=== PATIENT | male | born 1945 | race Caucasian/White ===

== ENCOUNTER 2017-01-17 19:50 | Emergency (ER) | payer OTHER, BC ==
[~2017-01-17] VITALS: Ht 180.3 cm; Wt 121.4 kg
[~2017-01-17 19:50] MED LIST: ACC10 PO; ALL300 PO; CLC6 PO; INDA1TAB3 PO; LANS30CA12 PO; OXYC-609 PO; SYN100 PO
[2017-01-17 19:55] VITALS: TEMP 36.6; Ht 180.3 cm; Wt 121.4 kg
[2017-01-17] MEDS ORDERED: ALLO300T2 PO (20:13)
[2017-01-17] MEDS ORDERED: ASPI81TA28 PO (20:13)
[2017-01-17] MEDS ORDERED: LEVO150T PO (20:13)
[2017-01-17] MEDS ORDERED: QUIN40TA18 PO (20:13)
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
[2017-01-17 22:22] VITALS: BP 147/83; PULSE 78; O2SAT 95
== END 2017-01-17 22:23 | disposition home or self-care (01) ==
LOC: C.EDB 19:54 → C.EDD 22:23
DX: M25.512 Pain in left shoulder (principal); V43.52XA Car driver injured in collision with other type car in traffic accident, initial encounter; I10 Essential (primary) hypertension; M51.16 Intervertebral disc disorders with radiculopathy, lumbar region; Z85.51 Personal history of malignant neoplasm of bladder; Z98.1 Arthrodesis status; Z79.82 Long term (current) use of aspirin; Z79.899 Other long term (current) drug therapy

== ENCOUNTER → 2017-02-13 | Outpatient (CLI) | payer BC ==
[~2017-02-13] MED LIST changes: -ACC10 PO; -ALL300 PO; +ALLO300T2 PO; +ASPI81TA28 PO; -CLC6 PO; +LEVO150T PO; -OXYC-609 PO; +QUIN40TA18 PO; -SYN100 PO
--- NOTE | 2017-02-13 15:26 | DIAGNOSTIC IMAGING REPORT ---
MRI LUMBAR SPINE W/O CONTRAST CLINICAL HISTORY: Back pain with radiculopathy. TECHNIQUE: Sagittal and axial T1, T2 and STIR images were obtained. COMPARISON STUDY: Conventional radiographic study dated 05/12/2016 OBSERVATIONS: The vertebral bodies and posterior elements appear intact. There is no abnormal bony signal present to suggest a marrow replacement process. T12-L1 level. There is an anterior disc protrusion. Sagittal images suggest a broad-based disc bulge. There is minor spinal stenosis. L1-2: No disc protrusions or extrusions. No evidence of spinal canal or neural foraminal compromise. L2-3: There are postsurgical changes of a spinal fusion. There are L2 and L3 pedicle screws. There is mild left-sided foraminal narrowing and mild spinal canal narrowing. L3-4: There are postsurgical changes of a discectomy and interbody fusion. There are posterior laminectomy changes. This 25 mm cyst posterior to the thecal sac. There is no significant spinal stenosis. Foraminal evaluation is difficult due to artifact from the hardware. There are suspected bilateral foraminal narrowing more severe on the right L4-5: There are postsurgical changes of a discectomy and interbody fusion. Postlaminectomy changes are visualized. There is no significant spinal stenosis. There is mild bilateral foraminal narrowing. L5-S1: There is a circumferential disc bulge present. There is mild to moderate spinal stenosis. Soft tissue within the left lateral recess and foramen, likely represents either postsurgical epidural fibrosis, a disc fragment, or nerve root edema. A post contrast-enhanced study might be of benefit to differentiate these entities. The conus medullaris and cauda equina appear normal. IMPRESSION: 1. Postsurgical change and multilevel spondylitic change 2. Multilevel foraminal narrowing 3. Mild to moderate spinal stenosis the L5-S1 level 4. Soft tissue within the left lateral recess and foramina at the L5-S1 level. Diagnostic considerations include postsurgical epidural fibrosis, disc herniation, or nerve root edema. Electronically signed by: Dex Tong M.D. 02/13/2017 3:25 PM Dictated Date/Time: 02/13/2017 3:13 PM
== END | disposition home or self-care (01) ==
LOC: C.MRIBC 14:26
PROVIDERS: ATTEND Pain Medicine Interventional Pain Medicine
DX: M54.16 Radiculopathy, lumbar region (principal)

== ENCOUNTER → 2017-02-28 | Outpatient (CLI) | payer BC ==
[2017-02-28 12:21] LABS: BASO % 1.8 %; BASO ABS # 0.12 K/uL (0-0.2); COMPLETE YES; EOS % 4.8 %; HEMATOCRIT 51.7 % (42-52); IG% 0.2 %; LYMPH % 26.2 %; LYMPH ABS # 1.74 K/uL (1.2-3.4); MEAN CELL VOLUME 89.6 fL (80-100); MEAN CORPUSCULAR HEMOGLOBIN 28.6 pg (25-34); MEAN CORPUSCULAR HGB CONC 31.9 g/dl (32-36); MEAN PLATELET VOLUME 11.7 fL (7.4-10.4); MONO % 11.9 %; NEUT % 55.1 %; PLATELET COUNT 216 K/uL (130-400); RED BLOOD COUNT 5.77 M/uL (4.7-6.1); WHITE BLOOD COUNT 6.63 K/uL (4.8-10.8)
[2017-02-28 12:24] LABS: ESTIMATED AVERAGE GLUCOSE 120 mg/dl; HA1C FLAG Normal (Normal)
[2017-02-28 12:29] LABS: BLOOD UREA NITROGEN 13 mg/dl (7-18); BUN/CREATININE RATIO 12.5 (10-20); CARBON DIOXIDE 30 mmol/L (21-32); CHLORIDE 103 mmol/L (98-107); CHOLESTEROL 208 mg/dl (0-200); GLUCOSE 95 mg/dl (70-99); POTASSIUM 3.7 mmol/L (3.5-5.1); SODIUM 138 mmol/L (136-145); URIC ACID 5.5 mg/dl (2.6-7.2)
[2017-02-28 12:44] LABS: CHOLESTEROL/HDL RATIO 6.5; HDL CHOLESTEROL 32 mg/dl; TRIGLYCERIDES 211 mg/dl (0-150); VERY LOW DENSITY LIPOPROT CALC 42 mg/dl
--- NOTE | 2017-03-06 12:21 | CODING QUERY MEDICAL NECESSITY ---
SUPPORTING DIAGNOSIS NEEDED A supporting diagnosis is required for the test/procedure performed on this patient in order for us to be reimbursed by the patient's insurance. Please provide a supporting diagnosis for the following test/procedure listed below next to the test name along with your signature. *If there is no additional diagnosis for this patient that would support the following test/procedure please document that below next to the test/procedure. Test(s)/Procedure(s) that require a supporting diagnosis: * PSA DIAGNOSIS: Provider Signature: Date: Thank you [facility] [employer] Once completed, please kindly fax back to [phone] For questions please call [phone]
== END | disposition home or self-care (01) ==
LOC: C.LAB 09:48
PROVIDERS: ATTEND Internal Medicine
DX: Z00.00 Encounter for general adult medical examination without abnormal findings (principal); R73.9 Hyperglycemia, unspecified; M10.9 Gout, unspecified; I10 Essential (primary) hypertension; E03.9 Hypothyroidism, unspecified; N40.0 Benign prostatic hyperplasia without lower urinary tract symptoms

== ENCOUNTER → 2017-05-12 | Outpatient (CLI) | payer BC ==
[2017-05-12 13:31] LABS: BLOOD UREA NITROGEN 12 mg/dl (7-18); BUN/CREATININE RATIO 13.6 (10-20); CALCIUM 8.5 mg/dl (8.5-10.1); CARBON DIOXIDE 29 mmol/L (21-32); CHLORIDE 104 mmol/L (98-107); CREATININE 0.92 mg/dl (0.60-1.40); GLUCOSE 95 mg/dl (70-99); POTASSIUM 3.9 mmol/L (3.5-5.1); SODIUM 139 mmol/L (136-145)
[2017-05-12 13:45] LABS: CHOLESTEROL 165 mg/dl (0-200); CHOLESTEROL/HDL RATIO 5.5; HDL CHOLESTEROL 30 mg/dl; TRIGLYCERIDES 193 mg/dl (0-150); VERY LOW DENSITY LIPOPROT CALC 39 mg/dl
[2017-05-12 14:01] LABS: ESTIMATED AVERAGE GLUCOSE 117 mg/dl; HA1C FLAG Normal (Normal)
== END ==
LOC: C.LABSPEC 12:29
PROVIDERS: ATTEND Internal Medicine
DX: E03.9 Hypothyroidism, unspecified (principal); I10 Essential (primary) hypertension; E78.5 Hyperlipidemia, unspecified

== ENCOUNTER → 2017-09-28 | Outpatient (CLI) | payer BC ==
[2017-09-28 12:47] LABS: BASO % 1.6 %; BASO ABS # 0.11 K/uL (0-0.2); EOS ABS # 0.35 K/uL (0-0.5); HEMATOCRIT 50.1 % (42-52); HEMOGLOBIN 17.1 g/dL (14.0-18.0); IG# 0.03 K/uL (0.00-0.02); LYMPH % 27.3 %; LYMPH ABS # 1.93 K/uL (1.2-3.4); MEAN CELL VOLUME 89.3 fL (80-100); MEAN CORPUSCULAR HEMOGLOBIN 30.5 pg (25-34); MEAN CORPUSCULAR HGB CONC 34.1 g/dl (32-36); MEAN PLATELET VOLUME 12.1 fL (7.4-10.4); MONO % 12.9 %; MONO ABS # 0.91 K/uL (0.11-0.59); NEUT % 52.8 %; NEUT ABS # 3.73 K/uL (1.4-6.5); PLATELET COUNT 206 K/uL (130-400); RED CELL DISTRIBUTION WIDTH CV 14.8 % (11.5-14.5); RED CELL DISTRIBUTION WIDTH SD 48.5 fL (36.4-46.3); WHITE BLOOD COUNT 7.06 K/uL (4.8-10.8)
[2017-09-28 13:04] LABS: ALBUMIN 3.7 gm/dl (3.4-5.0); ALT/SGPT 61 U/L (12-78); AST/SGOT 54 U/L (15-37); BLOOD UREA NITROGEN 12 mg/dl (7-18); CARBON DIOXIDE 31 mmol/L (21-32); CHOLESTEROL 193 mg/dl (0-200); CREATININE 1.02 mg/dl (0.60-1.40); GLUCOSE 97 mg/dl (70-99); POTASSIUM 3.9 mmol/L (3.5-5.1); SODIUM 138 mmol/L (136-145)
[2017-09-28 13:23] LABS: ALKALINE PHOSPHATASE 65 U/L (45-117); LDL CHOLESTEROL (DIRECT) 137 mg/dl; TOTAL PROTEIN 6.9 gm/dl (6.4-8.2)
== END | disposition home or self-care (01) ==
LOC: C.LABSPEC 12:23
PROVIDERS: ATTEND Internal Medicine
DX: Z85.51 Personal history of malignant neoplasm of bladder (principal); E03.9 Hypothyroidism, unspecified; I10 Essential (primary) hypertension; E78.5 Hyperlipidemia, unspecified

== ENCOUNTER → 2018-03-05 | Outpatient (CLI) | payer BC ==
[~2018-03-05] MED LIST changes: +QUIN1TAB49 PO; -QUIN40TA18 PO
== END | disposition home or self-care (01) ==
LOC: C.LAB 08:59
PROVIDERS: ATTEND Urology
DX: C67.9 Malignant neoplasm of bladder, unspecified (principal)

== ENCOUNTER 2021-10-21 10:14 | Observation (INO) ==
--- NOTE | 2021-10-15 13:57 | Anesthesiology Consultation ---
Date of Service October 15, 2021 Assessment & Plan (1) Encounter for pre-operative examination: Chart Review Chart Review: Acceptable Risk for Surgery (pending preop Covid testing results ) and Patient NOT seen in Pre Admission Testing Patient seen by PCP 09/10/2021 = Per nursing assessment 10/15/2021, patient denies any recent travel. Wears mask in public. No known Covid infection in the past 90 days. Patient is fully vaccinated for Covid. No known Covid positive exposures or Covid related symptoms. Preop Covid testing scheduled 10/19/21= will await results History Surgery Operation Date: 10/21/21 10:40 Proposed Procedures p Right Total Knee Arthroplasty - Mark Horvath MD Height/Weight Height: 5 ft 10.5 in Weight: 110.223 kg Allergies Allergy/AdvReac Type Severity Reaction Status Date / Time No Known Allergies Allergy Unknown Verified 10/15/21 12:20 Medications Home Medications Medication Instructions Recorded Confirmed Last Taken aspirin 81 mg tablet,delayed 81 mg PO QAM 04/03/19 10/15/21 Unknown release (Adult Aspirin Regimen) indapamide 2.5 mg tablet 2.5 mg PO QAM 04/03/19 10/15/21 Unknown lansoprazole 30 mg delayed 30 mg PO HS 04/03/19 10/15/21 Unknown release,disintegrating tablet quinapril 40 mg tablet 40 mg PO QAM 04/03/19 10/15/21 Unknown levothyroxine 175 mcg tablet 175 mcg PO QAM 06/15/21 10/15/21 Unknown Past Medical History Medical History (Updated 10/15/21 @ 14:02 by Francheska Becerra PA-C) BPH (benign prostatic hyperplasia) GERD (gastroesophageal reflux disease) Controlled, stable per pt; denies issues laying flat re: reflux Hx of bladder cancer S/p surgery, no chemo or XRT Hx of gout Hypertension Controlled, stable per pt Hypothyroidism Lumbar disc disease with radiculopathy Sleep apnea CPAP-compliant SNHL (sensorineural hearing loss) Spinal stenosis Past Family History Family History Other No family history of adverse response to anesthesia Past Surgical History Surgical History H/O spinal fusion cervical History of anesthesia reaction agitated post-op during cervical fusion/PONV History of cataract surgery bilat History of colonoscopy 2020 History of cystoscopy bladder tumor removal History of lumbar fusion x 2 History of repair of rotator cuff right History of tooth extraction full upper plate Social History Smoking Status: Former smoker tobacco type: cigars Do You Dip or Chew Tobacco: No Smoking End Date: YRS AGO-CIGARS Hx Alcohol Use: Yes Alcohol type: beer alcohol intake frequency: holidays/special occasions only Hx Substance Use: No substance use type: does not use Lab Results Anesthesia Preop Results Results Anesthesia Widget: WBC 8.39 K/uL (4.8-10.8) 09/30/21 Hgb 17.0 g/dL (14.0-18.0) 09/30/21 Hct 50.9 % (42-52) 09/30/21 Plt 251 K/uL (130-400) 09/30/21 Na 137 mmol/L (136-145) 09/30/21 K 3.7 mmol/L (3.5-5.1) 09/30/21 Cl 100 mmol/L (98-107) 09/30/21 CO2 29 mmol/L (21-32) 09/30/21 BUN 12 mg/dl (6-23) 09/30/21 Creat 0.91 mg/dl (0.6-1.4) 09/30/21 Glucose Level 91 mg/dl (70-99(Fasting)) 09/30/21 PT 11.7 Seconds (9.0-12.0) 09/30/21 INR 1.1 (0.9-1.1) 09/30/21 Blood Type O Positive 09/30/21 Antibody Screen NEGATIVE 09/30/21 Testing Electrocardiogram Date: 06/17/21 Findings: + NSR @ (74bpm ) and + no change from (October 16, 2018 per cardio ) RBBB. Chest X-Ray Date: 06/17/21 Findings: + NAD Stress Test Date: 05/15/18 Type: nuclear No scintigraphic evidence of a prior myocardial infarction or stress-induced myocardial ischemia. No Lexiscan induced chest pain. No Lexiscan induced EKG changes. Normal left ventricular systolic function without wall motion abnormality. Left ventricular ejection fraction is 61%.
--- NOTE | 2021-10-18 00:27 | History and Physical Report ---
CHIEF COMPLAINT: Bilateral knee pain and discomfort, right side greater than left. HISTORY OF PRESENT ILLNESS: A 76-year-old gentleman who presents for surgical treatment of his right knee. He has got a long history of bilateral knee pain and discomfort, right side a bit worse than left. He has been through extensive conservative treatment including multiple aspirations and inject ions over the years. This does not provide him any long-term relief anymore. He has got recurrent s welling in both knees. He has global pain. The more he is up and on it, the more it hurts and the m ore he limps. He is fed up with his knee pain and would like to have his right knee fixed. He is pl anning on doing the left one in the future. PAST MEDICAL HISTORY: 1. Sleep apnea. 2. Hypertension. 3. Hypothyroidism. 4. Mild obesity with a BMI of 35. 5. Sciatica. PAST SURGICAL HISTORY: Include, 1. Bladder cancer. 2. Back surgery. 3. Neck surgery. ALLERGIES: None. CURRENT MEDICATIONS: Include, 1. Aspirin once a day. 2. Indapamide 3. Lansoprazole. 4. Levothyroxine. 5. Quinapril. SOCIAL HISTORY: A 76-year-old male. Fairly active. Does not smoke. Occasional alcohol intake. FAMILY HISTORY: Noncontributory. REVIEW OF SYSTEMS: Negative for diabetes. Denies any chest pain or shortness of breath. No history of DVT or PE. No known bleeding problems. PHYSICAL EXAMINATION: GENERAL: Shows a pleasant, elderly male. He looks to be in pretty good health. HEENT: Benign. NECK: Supple. No lymphadenopathy. LUNGS: Clear to auscultation. HEART: Has a regular rate and rhythm. ABDOMEN: Soft, nontender, nondistended. EXTREMITIES: Grossly neurovascularly intact except as follows: Examination of both knees revealed t he patient walks with a bit of a waddling gait. Examination of the right knee reveals varus alignmen t to his knee. He has got a varus thrust with weightbearing. Range of motion is about 10 degrees sh ort of full extension to 120 degrees of flexion. He can do a straight leg raise. No pain with hip m otion. Examination of the left knee reveals similar varus deformity. He is tender over the medial j oint line. Range of motion is 5-120. No instability. No pain with hip motion. X-RAYS: X-rays of both knees reveal advanced bilateral knee DJD. He has got advanced tricompartment disease in both knees. The right side is a bit worse than the left. He has got osteophytes through out. ASSESSMENT: A 76-year-old male with advanced bilateral knee degenerative joint disease. The right s adelaida is a bit worse than the left. He has failed conservative measures and would like to proceed with right knee replacement first. PLAN: We will take him to the operating room and do a right total knee replacement. Risks and benef its of this procedure were explained to the patient to include, but not limited to, DVT, PE, , i nfection, neurological injury, vascular injury, bleeding problems, pain, limited range of motion, sti ffness, failure to relieve his symptoms, incomplete relief of symptoms, need for further surgery in t he future, fracture, leg length inequality, nerve palsy, etc. The patient understands and desires to proceed. Informed consent was obtained. We did talk about holding his quinapril the morning of surgery. He is planning to be discharged to [facility] using the [facility] program. Job ID: [id number]
[~2021-10-21 10:14] MED LIST changes: +ACETAMINOPHEN 500 MG TAB PO SCH; -ALLO300T2 PO; -ASPI81TA28 PO; +BUPIVACAINE 0.5 % 5 MG/1 ML PF 10ML VIAL ONE; +BUPIVACAINE LIPOSOME/PF 266 MG, BUPIVACAINE/EPINEPHRINE 50 ML, SODIUM CHLORIDE 0.9% 30 ... INFIL SCH; +FAMOTIDINE 20 MG TAB PO SCH; +GABAPENTIN 300 MG CAP PO SCH; -INDA1TAB3 PO; -LANS30CA12 PO; -LEVO150T PO; +LR 500ML BOLUS, THEN 15ML/HR IV SCH; +LR 60ML/HR IV SCH; +METOCLOPRAMIDE HCL 10 MG TABLET PO SCH; -QUIN1TAB49 PO; +TRANEXAMIC ACID 1,000 MG **IV Intra-op IV SCH; +ceFAZolin 2000MG 2,000 MG/15 ML SYR IV SCH
--- NOTE | 2021-10-21 11:29 | History & Physical Bridge Note ---
Date of Service October 21, 2021 History & Physical Bridge Note I have examined the patient, reviewed the History & Physical and in the interval since the performance of the History & Physical I have noted the following changes of clinical significance: no changes noted
[2021-10-21] MEDS ORDERED: MIDAZOLAM HCL 1 MG/ML 2ML VIAL ONE (11:57)
[2021-10-21] MEDS ORDERED: ePHEDrine sulfate 50 MG/ML AMP IV PRN (12:07)
[2021-10-21] MEDS ORDERED: ONDANSETRON INJ 2 MG/ML 2 ML VIAL IV PRN ×2 (12:07→18:04)
[2021-10-21] MEDS ORDERED: ATROPINE SULFATE 0.1 MG/ML 10ML SYR IV PRN (12:07)
[2021-10-21] MEDS ORDERED: HYDROmorphone INJ 1 MG/ML SYRINGE IV PRN (12:30)
[2021-10-21] MEDS ORDERED: fentaNYL citrate 100 MCG/2 ML VIAL ONE ×3 (12:42→15:28)
[2021-10-21] MEDS ORDERED: PROPOFOL IV EMULSION 10 MG/ML 20 ML VIAL IV ONE (13:00)
[2021-10-21] MEDS ORDERED: ROCURONIUM BROMIDE 10 MG/ML 5 ML VIAL IV ONE ×3 (13:00→14:09)
[2021-10-21] MEDS ORDERED: LIDOCAINE 2% 2 ML VIAL/AMP(20MG/ML) INFIL ONE (13:00)
[2021-10-21] MEDS ORDERED: ONDANSETRON INJ 2 MG/ML 2 ML VIAL ONE (13:00)
[2021-10-21] MEDS ORDERED: NEOSTIGMINE METHYLSULFATE 1 MG/ML 10ML VIAL ONE (13:01)
[2021-10-21] MEDS ORDERED: GLYCOPYRROLATE 0.2 MG/ML VIAL ONE (13:01)
[2021-10-21] MEDS ORDERED: DEXAMETHASONE SOD INJ 4 MG/ML VIAL ONE (13:01)
[2021-10-21] MEDS ORDERED: SODIUM CHLORIDE 0.9% INJ 10 ML VIAL ONE (13:28)
[2021-10-21] MEDS ORDERED: BUPIVACAINE/EPINEPHRINE 0.25% 1:200,000 30 ML VIAL ONE (13:29)
[2021-10-21] MEDS ORDERED: BUPIVACAINE LIPOSOME 1.3% 266 MG/20 ML VIAL ONE (13:29)
[2021-10-21] MEDS ORDERED: SODIUM CHLORIDE 0.9% PF 50 ML VIAL ONE (13:29)
[2021-10-21] MEDS ORDERED: EPINEPHrine INJ 1 MG/ML AMP ONE (13:36)
[2021-10-21] MEDS ORDERED: BUPIVACAINE 0.25% 30 ML VIAL ONE (13:36)
[2021-10-21] MEDS ORDERED: DexMEDEtomidine HCL IV 100 MCG/ML VIAL IV ONE (13:41)
[2021-10-21] MEDS ORDERED: ePHEDrine sulfate 50 MG/ML AMP ONE ×2 (14:12→14:38)
[2021-10-21] MEDS ORDERED: SUCCINYLCHOLINE CHLORIDE 20 MG/ML 10 ML VIAL IV ONE (14:16)
[2021-10-21] MEDS ORDERED: SUGAMMADEX SODIUM 200 MG/2 ML VIAL IV ONE (14:42)
--- NOTE | 2021-10-21 15:41 | Post Operative Brief Note ---
PG Immediate Post Op with CF Date of Surgery October 21, 2021 Pre & Post Diagnosis Operation Date: 10/21/21 12:45 Pre-Op Diagnosis: Right knee degenerative joint disease Post-Op Diagnosis: Right knee degenerative joint disease I identified the patient and participated in the time-out.: Yes Procedure Operation Date: 10/21/21 12:45 Actual Procedures p Right Total Knee Replacement(Right) - Mark Horvath MD Surgeon Mark Horvath MD Welder Apprentice Paxton Tan PA-C Estimated Blood Loss 50 Findings Consistent with Post-Op Diagnosis Specimens Specimen Description: A. Right knee bone and tissue
--- NOTE | 2021-10-21 16:04 | XRay Report ---
XR knee RT 1 or 2V routine CLINICAL HISTORY: Surgical Post Op. Status post total knee replacement COMPARISON STUDY: None TECHNIQUE: 2 right knee views FINDINGS: The patient is status post total knee replacement. The prosthetic components are in anatomi c alignment with no acute abnormality seen. Air is present within the soft tissues from the procedure . Skin nikki are seen anteriorly. A surgical drain is also present. IMPRESSION: 1. Status post total knee replacement. ACT 112: Negative or not required by law. Electronically signed by: Rcok Lauren M.D. 10/21/2021 4:03 PM
[2021-10-21] MEDS: fentaNYL citrate 100 MCG/2 ML VIAL IV PRN ×4 (16:05→16:20)
--- NOTE | 2021-10-21 17:30 | Operative Report ---
PG Post Operative Report Pre & Post Diagnosis Operation Date: 10/21/21 12:45 Pre-Op Diagnosis: Right knee degenerative joint disease Post-Op Diagnosis: Right knee degenerative joint disease I identified the patient and participated in the time-out.: Yes Procedure Operation Date: 10/21/21 12:45 Actual Procedures p Right Total Knee Replacement(Right) - Mark Horvath MD Surgeon Mark Horvath MD Keypunch Operator Paxton Tan PA-C Estimated Blood Loss 50 Findings Consistent with Post-Op Diagnosis Operative findings revealed extensive grade 4 [id number] disease in all 3 compartments. He had a very erosive appearing knee with erosions in all 3 compartments. He had about a 15 degree flexion contracture and only about 9500 degrees knee flexion. Fluids 1000 cc Specimens Right knee sent for pathology Anesthesia Type General Complications none Disposition Accompanied Patient To Recovery: No Indications Patient 76-year-old gentleman said a long history of knee problems. He has been through extensive conservative treatment of the origin which became less successful. Both knees are hurting him. The right knee is worse than the left. He had very erosive appearing x-rays. He was debilitated by disease and elected to proceed with total knee arthroplasty. Description of Procedure Operative implants consist of: 1 Biomet Vanguard size 67.5 right posterior stabilized femoral component. 2. Biomet size 71 tibial tray. 3. 10 mm posterior stabilized polyethylene insert. 4. 31 x 8 all polypatella. The patient was taken to the operating, identified, placed on the operating table supine position protectors were properly padded. IV antibiotics 5 by anesthesia team. A general anesthetic was employed by anesthesia team. Right thigh tent was then placed. The right lower extremities then prepped and draped in usual sterile fashion. The right leg was elevated exsanguinated with use of an Esmarch in terms playset 3 mmHg. An anterior approach to the right knee was then performed through longitudinal incision centered over the patella. Sharp dissection was carried through subcutaneous tissue down the extensor mechanism. A medial parapatellar arthrotomy incision was made. Some subperiosteal dissection was carried out medially. The fat pad was resected beneath patella tendon. The lateral p atellofemoral ligament was released. The patella subluxated laterally and the knee was flexed. The osteophytes were taken off distal femur. His ACL was essentially absent. The PCL was released. The tibia subluxated anteriorly. The external tibial alignment jig was then placed in the interface the tibia and adjusted 14 mm medially. Proximal tibial cut was made remove about 2 mm of bone from the medial side. The tibia was then sized to a size 71. Some osteophytes taken off medially. Attention drawn the femur. The distal femur then with a sharp drill. Intramedullary canal was suction. A right 6 degree valgus cutting guide was placed. The distal femoral cutting block was pinned in place. Distal femoral cut was made to take an additional 3 mm of bone off distal femur. The femur was then sized to a size 67.5. The AP cutting block was pinned parallel to the epicondylar axis which was 4 degrees of external rotation. The anterior cut, anterior chamfer, posterior cut, posterior chamfer cuts were made. The box cutting guide was placed in just slight lateral box cut was made. The knee was flexed. The remnants of the medial lateral menisci were excised. The osteophytes were taken off the posterior aspect of the femur. A trial femoral component was placed. Tibial tray was pinned in maximum external rotation and the drill and stem punch were used to create defect in the proximal tibia tibial tray. Knee was then trialed and the 10 mm insert fit most appropriately. Attention drawn the patella. Patella was cleaned of all soft tissues. Patella thickness measured 23 mm in thickness was cut down to 14. Was sized to a size 31 patella. The lug holes were drilled for 31 patella. The lateral osteophyte is moved. Patella button was placed. Knee was taken through range of motion patella tracked nicely with no thumbs test. Attention drawn to place the permanent components. Nupathe all trial components were removed. Bone plug was placed into the distal femur limit blood loss. Double batch Palacos G cement was mixed. Biomet Vanguard size 67.5 right posterior stabilized femoral component, size 71 tibial tray, 10 mm posterior stabilized polyethylene insert, 31 x 8 all polypatella then cemented in place. The knee was brought out into full extension ~cement hardened. Final cement check was then performed. Pericapsular tissues were injected with total 100 cc of combination of 20 cc of Exparel, 30 cc normal saline, 50 cc of quarter percent Marcaine with epinephrine he received 1 g tranexamic acid. The tourniquet was then let down for final turn time of 60 stasis ureters electrocautery. Extensor mechanism closed with combination 1 PDS suture and #1 Vicryl in a buried interrupted fashion skin was closed skin nikki. Leg was then cleaned and dried and sterile dressing both Xeroform, 4 x 4's, sterile cast padding, West bandage were applied. The patient was then brought out of general anesthesia and transferred to the recovery room in stable condition. Patient tolerated the procedure well and there were no complications. Paxton Tan, my physician surgeon assistant, was present for the entire procedure. His assistance was essential and required for appropriate patient positioning, prepping and draping, surgical exposure, performing the technical details of the operation, placement the implants, closure of the wound, and placement of the st erile bandage. I attest to the content of the Intraoperative Record and any orders documented therein. Any exceptions are noted below.
[2021-10-21] MEDS: SODIUM CHLORIDE 0.9% 1000ML 1,000 ML IV SCH (17:40)
--- NOTE | 2021-10-21 17:40 | Anesthesiology Progress Note ---
Date of Service October 21, 2021 Anesthesia Post Procedure Vital Signs Vital Signs: Temp Pulse Resp BP Pulse Ox 10/21/21 17:15 89 23 136/71 96 10/21/21 17:00 84 20 133/65 93 10/21/21 16:50 36.5 C 83 20 135/66 93 10/21/21 16:40 86 14 141/62 H 95 10/21/21 16:30 81 18 126/60 96 10/21/21 16:20 86 15 124/64 92 10/21/21 16:10 85 15 115/64 98 10/21/21 16:00 90 18 116/78 98 10/21/21 15:50 87 20 122/66 96 10/21/21 15:41 36.4 C L 94 H 17 134/70 96 10/21/21 10:51 37.3 C 96 H 20 170/93 H 94 Pain Intensity Right Knee: Pain Intensity: 3 Transfer of Care Handoff Completed per policy Notes Mental Status: alert / awake / arousable Patient Amnestic to Procedure: Yes Nausea / Vomiting: adequately controlled Pain: adequately controlled Airway Patency, RR, SpO2: stable & adequate BP & HR: stable & adequate Hydration State: stable & adequate Anesthetic Complications: no major complications apparent
[2021-10-21] MEDS ORDERED: bisacodyL 10 MG SUPP PR PRN (18:04)
[2021-10-21] MEDS ORDERED: HYDROmorphone INJ 0.5 MG/0.5 ML SYR IV PRN (18:04)
[2021-10-21] MEDS ORDERED: NALOXONE HCL 0.4 MG/1 ML VIAL/CARP IV PRN (18:04)
[2021-10-21] MEDS ORDERED: oxyCODONE HCL IR 5 MG TAB (IMMEDIATE RELEASE) PO PRN (18:04)
[2021-10-21] MEDS ORDERED: ALUMINUM/MAGNESIUM SUSP 30 ML UDC PO PRN (18:04)
[2021-10-21] MEDS ORDERED: METOCLOPRAMIDE HCL INJ 5 MG/ML 2 ML VIAL IV PRN (18:04)
[2021-10-21] MEDS ORDERED: ONDANSETRON 4 MG OD TAB PO PRN (18:04)
[2021-10-21] MEDS ORDERED: MAGNESIUM HYDROXIDE SUSP 30 ML UDC PO PRN (18:04)
[2021-10-21] MEDS: KETOROLAC TROMETHAMINE 15 MG/ML VIAL IV SCH ×2 (18:33→23:36)
[2021-10-21] MEDS: DOCUSATE SODIUM 100 MG CAP PO SCH (20:52)
[2021-10-21] MEDS: ASCORBIC ACID 500 MG TAB PO SCH (20:52)
[2021-10-21] MEDS: ASPIRIN 81 MG ECTAB PO SCH (20:53)
[2021-10-21] MEDS ORDERED: LANSOPRAZOLE 30 MG SOLTAB PO SCH (21:00)
[2021-10-21] MEDS ORDERED: SENNA 8.6 MG TAB PO SCH (21:00)
[2021-10-21] MEDS: TAPENTADOL HCL ER 50 MG TABCR PO SCH (21:07)
[2021-10-21] MEDS ORDERED: TRANEXAMIC ACID / 0.7% NACL 1,000 MG/100 ML BAG IV SCH (21:45)
[2021-10-21] MEDS: ACETAMINOPHEN 500 MG TAB PO SCH (22:02)
[2021-10-21] MEDS: ceFAZolin 2000MG 2,000 MG/15 ML SYR IV SCH (22:19)
[2021-10-22] MEDS: SODIUM CHLORIDE 0.9% 1000ML 1,000 ML IV SCH (04:06)
[2021-10-22] MEDS: KETOROLAC TROMETHAMINE 15 MG/ML VIAL IV SCH ×2 (05:23→11:54)
[2021-10-22] MEDS: ACETAMINOPHEN 500 MG TAB PO SCH (05:24)
[2021-10-22] MEDS: ceFAZolin 2000MG 2,000 MG/15 ML SYR IV SCH (05:28)
[2021-10-22 06:19] LABS: Hematocrit (blood only) 42.7 % (42-52); Hemoglobin 13.9 g/dL (14.0-18.0); Mean Corpuscular Hemoglobin 28.8 pg (25-34); Mean Corpuscular Hgb Conc 32.6 g/dL (32-36); Mean Corpuscular Volume 88.6 fL (80-100); Mean Platelet Volume 11.7 fL (7.4-10.4); Platelet Count 231 K/uL (130-400); RDW Coefficient of Variation 14.5 % (11.5-14.5); RDW Standard Deviation 47.2 fL (36.4-46.3); Red Blood Count 4.82 M/uL (4.7-6.1); White Blood Count 18.37 K/uL (4.8-10.8)
[2021-10-22] MEDS ORDERED: LEVOTHYROXINE SODIUM 175 MCG TABLET PO SCH (06:30)
[2021-10-22 06:46] LABS: BUN Creatinine Ratio 17.9 (10-20); Calcium 8.4 mg/dl (8.5-10.1); Creatinine Clr Calc Pharmacy 96.4 ml/min; Est GFR (African American) 99.3 ml/min; Est GFR (Non-African American) 85.7 ml/min; Potassium 4.1 mmol/L (3.5-5.1)
--- NOTE | 2021-10-22 07:46 | Progress Notes ---
DATE OF SERVICE: 10/22/2021. SUBJECTIVE: A 76-year-old gentleman postoperative day 1 from a right knee replacement. He is doing pretty well. Denies any significant pain. No chest pain or shortness of breath. Not feeling dizzy or lightheaded. OBJECTIVE: VITAL SIGNS: Temperature is 36.6. Vital signs are stable. GENERAL: Shows a pleasant middle-aged male. He is walking around his room this morning with a walke r. LUNGS: Clear to auscultation. HEART: Regular rate and rhythm. ABDOMEN: Soft, nontender, nondistended. EXTREMITIES: Grossly neurovascularly intact except as follows: Examination of the right leg reveals the dressing to be clean, dry and intact. The leg is well aligned. He can dorsiflex and plantarfle x his foot appropriately. LABORATORY DATA: Hemoglobin 13.9. Hematocrit 42.7. White cell count 18.37. Electrolytes are stabl e. ASSESSMENT: A 76-year-old gentleman postoperative day 1 from right knee replacement, doing pretty we ll. Pain is controlled. He is neurologically intact. PLAN: 1. DVT prophylaxis including thigh-high TEDs, SCDs, and aspirin twice a day. 2. PT, OT, weightbear as tolerated. Right total knee protocol. 3. Pain control, doing well with current pain regimen. 4. Disposition: Plan to discharge to home with some home health later today if he does okay in ther apy. Job ID: [id number]
[2021-10-22] MEDS ORDERED: dexAMETHasone 10 MG in SYRINGE 0 ML IV SCH (08:00)
[2021-10-22] MEDS: ASPIRIN 81 MG ECTAB PO SCH (08:49)
[2021-10-22] MEDS: DOCUSATE SODIUM 100 MG CAP PO SCH (08:50)
[2021-10-22] MEDS: ASCORBIC ACID 500 MG TAB PO SCH (08:51)
[2021-10-22] MEDS ORDERED: INDAPAMIDE 1.25 MG TAB PO SCH (09:00)
[2021-10-22] MEDS ORDERED: MULTIVITAMIN TAB PO SCH (09:00)
[2021-10-22] MEDS ORDERED: TAMSULOSIN HCL 0.4 MG CAP PO SCH (09:00)
[2021-10-22] MEDS ORDERED: DOCUSATE SODIUM/SENNA 50/8.6MG TAB PO SCH (09:00)
[2021-10-22] MEDS ORDERED: ENALAPRIL MALEATE 10 MG TAB PO SCH (09:00)
[2021-10-22] MEDS: TAPENTADOL HCL ER 50 MG TABCR PO SCH (09:24)
--- NOTE | 2021-10-24 11:00 | Discharge Summary ---
Date of Service October 24, 2021 Discharge Data Procedures Performed Operation Date: 10/21/21 12:45 Actual Procedures p Right Total Knee Replacement(Right) - Mark Horvath MD Hospital Course (1) Status post total right knee replacement: Salvador is a 76 year old patient admitted on 10/21/21 and underwent total knee arthroplasty. He tolerated the procedure well and there were no complications. Transferred to the PACU post op and later to the orthopedic floor for further care. He was given ancef for antibiotic prophylaxis. He was also given RADHA stockings, SCDs, and aspirin for DVT prophylaxis. Hemoglobin, hematocrit, and vital signs were monitored during his hospital stay and remained stable. Did not require any blood transfusions. There were no complications during his hospital stay. By post op day #1 the patient was tolerating a regular diet, pain was reasonably controlled with oral pain medicine, and he was participating in physical therapy. On post op day #1 the patient was discharged home and set up with home health care. He was given printed discharge instructions including prescriptions for extra strength tylenol, aspirin, toradol, zofran, flomax, and oxycodone. Continue physical therapy, weight bearing as tolerated. Continue RADHA stockings. Follow up approximately 2 weeks post op or sooner if there are problems or concerns. Coding Level of Care Code None Diagnoses Status post total right knee replacement Z96.651
== END 2021-10-22 12:24 | disposition home health service (06) ==
LOC: 3E 10:14 → ASU 10:14
DX: Z68.35 Body mass index [BMI] 35.0-35.9, adult; Z79.899 Other long term (current) drug therapy; I10 Essential (primary) hypertension; E66.01 Morbid (severe) obesity due to excess calories; E03.9 Hypothyroidism, unspecified; M17.11 Unilateral primary osteoarthritis, right knee; Z79.890 Hormone replacement therapy; Z79.82 Long term (current) use of aspirin; G47.30 Sleep apnea, unspecified

== ENCOUNTER 2024-09-03 04:57 | Observation (INO) ==
--- NOTE | 2024-06-04 14:00 | PAT Medication Instructions ---
Medication Instructions Date of Service June 04, 2024 Home Medications indapamide 2.5 mg tablet 2.5 mg PO QAM lansoprazole 30 mg delayed release,disintegrating tablet 30 mg PO HS acetaminophen 500 mg capsule 1,000 mg PO TID PRN Pain levothyroxine 150 mcg tablet (Synthroid) 150 mcg PO QAM lisinopril 40 mg tablet 40 mg PO QAM aspirin 81 mg tablet,delayed release (Ketty Low Dose Aspirin) 81 mg PO QAM colchicine 0.6 mg tablet 0.6 mg PO BID ASK your prescriber and surgeon aspirin 81 mg tablet,delayed release (Ketty Low Dose Aspirin) 81 mg PO QAM STOP taking 48 hours before surgery colchicine 0.6 mg tablet 0.6 mg PO BID DO NOT take the morning of surgery indapamide 2.5 mg tablet 2.5 mg PO QAM lisinopril 40 mg tablet 40 mg PO QAM Take morning of surgery With a small sip of water, OTHERWISE NOTHING TO EAT OR DRINK AFTER MIDNIGHT: acetaminophen 500 mg capsule 1,000 mg PO TID PRN Pain (if needed) levothyroxine 150 mcg tablet (Synthroid) 150 mcg PO QAM Take evening before surgery lansoprazole 30 mg delayed release,disintegrating tablet 30 mg PO HS acetaminophen 500 mg capsule 1,000 mg PO TID PRN Pain (if needed) Other Notes If you have any questions please call us at [phone] or [phone] or [phone] or [phone]
--- NOTE | 2024-06-10 08:22 | Anesthesiology Consultation ---
Date of Service June 10, 2024 Assessment & Plan (1) Encounter for pre-operative examination: - patient reports ongoing process to schedule a [facility] amyloid clinic evaluation, requests PAT testing be faxed to [facility] PCP. 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 Case discussed in detail with Dr. Scott who advised that evaluation with amyloid clinic and an echocardiogram would be needed prior to proceeding with left TKA. Surgeon's office also made aware. Abnormal pre-op EKG discussed with Dr. Aden in addition to the case overall, he advised awaiting upcoming amyloid clinic evaluation, nothing further needed at this time. PAT testing to be faxed to [facility]. - OR notified that patient states will need a pillow under non-surgical knee for chronic back pain. - Outpatient joint assessment: Patient is currently scheduled for inpatient pathway. If re-evaluated and patient/surgeon requests outpatient pathway, patient is not ideal candidate for outpatient joint program from anesthesia standpoint. Chart Review Chart Review: Pending: Refer to Additional Notes / Consult section and Patient seen in Pre Admission Testing Teaching & Discussion Pre-Anesthesia Teaching/Discussion Notes: Instructed NPO after midnight before surgery, except medications with 15 cc of water. Medication instructions provided according to the PAT guidelines. History Surgery Operation Date: 07/05/24 07:00 Proposed Procedures p Left Total Knee Arthroplasty - Mark Horvath MD Height/Weight Height: 5 ft 9 in Weight: 109.7 kg Allergies Allergy/AdvReac Type Severity Reaction Status Date / Time No Known Allergies Allergy Unknown Verified 06/04/24 07:29 Medications Home Medications Medication Instructions Recorded Confirmed Last Taken indapamide 2.5 mg tablet 2.5 mg PO QAM 04/03/19 06/04/24 10/20/21 07:00 lansoprazole 30 mg delayed 30 mg PO HS 04/03/19 06/04/24 10/20/21 22:00 release,disintegrating tablet acetaminophen 500 mg capsule 1,000 mg PO TID PRN Pain 01/16/23 06/04/24 Unknown levothyroxine 150 mcg tablet 150 mcg PO QAM 01/16/23 06/04/24 Unknown (Synthroid) lisinopril 40 mg tablet 40 mg PO QAM 01/16/23 06/04/24 Unknown aspirin 81 mg tablet,delayed 81 mg PO QAM 06/04/24 06/04/24 Unknown release (Ketty Low Dose Aspirin) colchicine 0.6 mg tablet 0.6 mg PO BID PRN gout 06/04/24 06/04/24 Unknown Past Medical History Medical History (Updated 06/12/24 @ 13:49 by Columba Montano PA-C) BPH (benign prostatic hyperplasia) GERD (gastroesophageal reflux disease) Controlled, stable per pt; denies issues laying flat re: reflux Hx of bladder cancer ~2018, S/p surgery, no chemo or XRT Hx of gout Hypertension Controlled, stable per pt Hypothyroidism Sleep apnea CPAP-compliant for about 4 hours each night SNHL (sensorineural hearing loss) bilat. hearing aids Spinal stenosis Patient denies h/o stroke, seizures, heart attack, heart failure, DM, blood clots/DVTs or blood transfusions. Exercise / Class Metabolic Activity II 4-5 Yardwork/Stairs/Walk up hill (denies chest discomfort or shortness of breath with one flight of stairs) Past Family History Family History Other No family history of adverse response to anesthesia Past Surgical History Surgical History (Updated 06/12/24 @ 13:49 by Columba Montano PA-C) History of anesthesia reaction agitated post-op during cervical fusion/PONV History of carpal tunnel surgery of right wrist History of cataract surgery bilat History of colonoscopy 2020 History of cystoscopy bladder tumor removal History of esophagogastroduodenoscopy (EGD) History of lumbar fusion x 2, most recent ~1999; "when laying flat needs pillow under knees for support" History of repair of rotator cuff right History of tooth extraction full upper plate History of total right knee replacement Hx of cervical spine surgery 2017 or 2019, unsure exact part of neck, anterior approach; "when turning to the left if, it stays that way too long he gets very light-headed" Past Anesthesia History No Family Hx of Anesthesia Complications and Other (see above) History of PONV No Hx of Motion Sickness and History of PONV (denies needing scop patch) Social History Smoking Status: Former smoker tobacco type: cigars Do You Dip or Chew Tobacco: No Smoking End Date: many years ago Hx Alcohol Use: Yes Alcohol type: beer alcohol intake frequency: holidays/special occasions only Hx Substance Use: No substance use type: does not use Review of Systems Patient denies chest pain, shortness of breath, dyspnea on exertion, fever, chills, cough, wheezing, or palpitations. Physical Exam Vital Signs Vitals BP 137/84 P 56 TEMP 98.2 SP02 95% on RA RESP 18 Physical Patient resting comfortably in chair in no acute distress, alert and oriented, responding appropriately throughout visit Full cervical extension range of motion without pain TMD 3.5 finger breadths Mallampati Score 2 Dentition: upper plate, denies chipped or loose teeth, caps/crowns, implants or bridges Lungs: normal respiratory effort. Good air movement, clear throughout to auscultation, no adventitious breath sounds Cardiac: regular rate and rhythm, no murmurs noted Carotid arteries: negative bruit bilat Lab Results Anesthesia Preop Results Results Anesthesia Widget: WBC 6.72 K/ul (4.8-10.8) 06/10/24 Hgb 16.7 g/dl (14.0-18.0) 06/10/24 Hct 51.0 % (42.0-52.0) 06/10/24 Plt 250 K/uL (130-400) 06/10/24 Na 137 mmol/L (136-145) 06/10/24 K 4.2 mmol/L (3.5-5.1) 06/10/24 Cl 98 mmol/L (98-107) 06/10/24 CO2 32 mmol/L (21-32) 06/10/24 BUN 12 mg/dl (6-23) 06/10/24 Creat 0.80 mg/dl (0.6-1.4) 06/10/24 Glucose Level 95 mg/dl (70-99(Fasting)) 06/10/24 PT 11.7 Seconds (9.0-12.0) 06/10/24 PTT 29 Seconds (21-31) 06/10/24 INR 1.1 (0.9-1.1) 06/10/24 Blood Type O Positive 06/10/24 Antibody Screen NEGATIVE 06/10/24 Testing Electrocardiogram Date: 06/10/24 NSR, rate 64 bpm RBBB Chest X-Ray Date: 06/10/24 No acute process.
--- NOTE | 2024-08-12 10:24 | Anesthesiology Consultation ---
Date of Service August 12, 2024 Assessment & Plan (1) Encounter for pre-operative examination: - awaiting signed 08/09/24 [facility] amyloidosis clinic office note. - Case discussed in detail with Dr. Nelson including pending amyloidosis clinic note-he advised patient is acceptable to proceed given mild abnormalities on echocardiogram. - ER 07/31/24 [facility]: "...left ankle pain...believes he has recurrence of gout in his left ankle...struck his ankle on a rocking chair a couple of days ago and believes this triggered an episode of gout in the ankle...has had previous episodes of gout in his ankle after trauma. patient began to take colchicine to try to prevent worsening gout but symptoms progressed. The patient was given a liter of normal saline solution and IV Decadron and felt significantly better. He will be treated with oral prednisone over the next 4 days and follow-up with his PCP for further care..." - OR notified that patient states will need a pillow under non-surgical knee for chronic back pain. - Outpatient joint assessment: Patient is currently scheduled for inpatient pathway. If re-evaluated and patient/surgeon requests outpatient pathway, patient is not ideal candidate for outpatient joint program from anesthesia standpoint. Chart Review Chart Review: Pending: Refer to Additional Notes / Consult section and Patient seen in Pre Admission Testing Teaching & Discussion Pre-Anesthesia Teaching/Discussion Notes: Instructed NPO after midnight before surgery, except medications with 15 cc of water. Medication instructions provide d according to the PAT guidelines. History Surgery Operation Date: 09/03/24 08:50 Proposed Procedures p Left Total Knee Arthroplasty - Mark Horvath MD Height/Weight Height: 5 ft 9 in Weight: 103.873 kg Allergies Allergy/AdvReac Type Severity Reaction Status Date / Time No Known Allergies Allergy Unknown Verified 08/07/24 08:02 Medications Home Medications Medication Instructions Recorded Confirmed Last Taken indapamide 2.5 mg tablet 2.5 mg PO QAM 04/03/19 08/07/24 10/20/21 07:00 lansoprazole 30 mg delayed 30 mg PO HS 04/03/19 08/07/24 10/20/21 22:00 release,disintegrating tablet acetaminophen 500 mg capsule 1,000 mg PO TID PRN Pain 01/16/23 08/07/24 Unknown levothyroxine 150 mcg tablet 150 mcg PO QAM 01/16/23 08/07/24 Unknown (Synthroid) lisinopril 40 mg tablet 40 mg PO QAM 01/16/23 08/07/24 Unknown aspirin 81 mg tablet,delayed 81 mg PO QAM 06/04/24 08/07/24 Unknown release (Ketty Low Dose Aspirin) colchicine 0.6 mg tablet 0.6 mg PO BID PRN gout 06/04/24 08/07/24 Unknown prednisone 20 mg tablet 40 mg (2 x 20 mg) PO DAILY #8 tabs 07/31/24 08/07/24 Unknown Past Medical History Medical History (Updated 08/12/24 @ 10:18 by Columba Montano PA-C) Amyloidosis following with [facility] specialist BPH (benign prostatic hyperplasia) GERD (gastroesophageal reflux disease) Controlled, stable per pt; denies issues laying flat re: reflux Hx of bladder cancer ~2018, S/p surgery, no chemo or XRT Hx of gout recent flare, on prednisone Hypertension Controlled, stable per pt Hypothyroidism Sleep apnea CPAP-using unit for about 4 hours each night SNHL (sensorineural hearing loss) bilat. hearing aids Spinal stenosis Past Family History Family History Other No family history of adverse response to anesthesia Past Surgical History Surgical History (Updated 08/12/24 @ 10:18 by Columba Montano PA-C) History of anesthesia reaction agitated post-op during cervical fusion/PONV History of carpal tunnel surgery of right wrist History of cataract surgery bilat History of colonoscopy 2020 History of cystoscopy bladder tumor removal History of esophagogastroduodenoscopy (EGD) History of lumbar fusion x 2, most recent ~1999; "when laying flat needs pillow under knees for support" History of repair of rotator cuff right History of tooth extraction full upper plate History of total right knee replacement Hx of cervical spine surgery 2017 or 2019, unsure exact part of neck, anterior approach; "when turning to the left if, it stays that way too long he gets very light-headed" Social History Smoking Status: Never smoker tobacco type: cigars Do You Dip or Chew Tobacco: No Smoking End Date: many years ago Hx Alcohol Use: Yes Alcohol type: beer alcohol intake frequency: holidays/special occasions only Hx Substance Use: No substance use type: does not use Lab Results Anesthesia Preop Results Results Anesthesia Widget: WBC 12.30 K/ul (4.8-10.8) H 08/12/24 Hgb 16.3 g/dl (14.0-18.0) 08/12/24 Hct 49.7 % (42.0-52.0) 08/12/24 Plt 241 K/uL (130-400) 08/12/24 Na 134 mmol/L (136-145) L 08/12/24 K 3.9 mmol/L (3.5-5.1) 08/12/24 Cl 97 mmol/L (98-107) L 08/12/24 CO2 32 mmol/L (21-32) 08/12/24 BUN 14 mg/dl (6-23) 08/12/24 Creat 0.80 mg/dl (0.6-1.4) 08/12/24 Glucose Level 104 mg/dl (70-99(Fasting)) H 08/12/24 PT 11.3 Seconds (9.0-12.0) 08/12/24 PTT 27 Seconds (21-31) 08/12/24 INR 1.0 (0.9-1.1) 08/12/24 Blood Type O Positive 08/12/24 Antibody Screen NEGATIVE 08/12/24 Testing Electrocardiogram Date: 06/10/24 NSR, rate 64 bpm RBBB Chest X-Ray Date: 06/10/24 No acute process. Echocardiogram Date: 07/26/24 EF 55-59% Normal LV wall motion Borderline cLVH Grade I diastolic dysfunction PASP 37 mmHg Mild mitral regurgitation Mild tricuspid regurgitation
--- OUTSIDE RECORDS SUMMARY | 2024-09-03 05:02 | External Medical Summary | Summary of Care ---
Author Name Unknown Organization [facility] Address [address] [place] [address] Phone [phone] Care Team Providers Care Bakery And Deli Sales Manager Name Role Phone Faby Tomas MD Primary Care Provid er Reason for Visit * Reason Onset Date Comments Test Results 08/19/2024 Negative TTR ifeanyi ting for amyloidosis Encounter Details Date Type Department Care Team (Late st Contact Info) Description 08/19/2024 Telephone Medical Genetics [address] [place] [address] Devin Khanna, MS [address] [place] [address] Test Results (Negative TTR testing for suly... Allergies No known active allergiesdocumented as of this encounter (statuses as of 08/19/2024) Medications Aspirin 81 MG Tablet Take 1 Tablet by mouth in the morning. Active Triamcinolone Acetonide 0.1 % External Cream (Aristocort) Apply topically to affected area 2 times a day. To affected area. 80 g 5 3 Active Synthroid 150 MCG Oral Tablet (levothyroxine)Ind ications:Acquired hypothyroidism TAKE 1 TABLET DAILY BEFORE BREAKFAST IN THE MORNING 90 Tablet 3 4 Active Lansoprazole 30 MG Oral Capsule Delayed Release (Prevacid) TAKE 1 CAPSULE EVERY MORNING 90 Capsule 2 4 Active Lisinopril 40 MG Oral Tablet TAKE 1 TABLET EVERY MORNING 90 Tablet 3 4 Active Indapamide 2.5 MG Oral Tablet (Lozol)Indications :Hypertension goal BP (blood pressure) < 150/90 Take 1 Tablet by mouth in the morning. 90 Tablet 3 4 Active predniSONE 20 MG Oral Tablet (Deltasone) 5 Active Colchicine 0.3 MG OR TABS 1 Tablet. 4 Active documented as of this encounter (statuses as of 08/19/2024) Active Problems Problem Noted Date Diagnosed Date Wild-type transthyretin-related (ATTR) amyloidos is 08/09/2024 Carpal tunnel syndrome, bilateral 04/15/2024 Osteoarthritis of right shoulder 01/09/2023 Rotator cuff arthropathy of right shoulder 01/09 Agnosia for smell 04/22/2022 Agnosia for taste 04/22/2022 H/O spinal fusion 04/22/2022 H/O total knee replacement, right 04/22/2022 H/O carcinoma of bladder 10/22/2021 Spinal stenosis of lumbar region 03/07/2017 Degeneration of lumbar intervertebral disc 01/26 Radicular pain 01/26/2017 Greater trochanteric bursitis 05/28/2015 Hereditary and idiopathic peripheral neuropathy 01/03/2012 Hypothyroidism Gout GERD (gastroesophageal reflux disease) Hypertension goal BP (blood pressure) < 150/90 Other male erectile dysfunction documented as of this encounter (statuses as of 08/19/2024) Resolved Problems Problem Noted Date Diagnosed Date Resolved Date Sacroiliitis 07/14/2015 06/22/2022 documented as of this encounter (statuses as of 08/19/2024) Immunizations Name Administration Dates Next Due COVID-19 mRNA, LNP-s, No Pre serve, 2-Dose Series (Moderna) 06/16/2021,10/05/2020,09/07/2020 COVID-19, mRNA, LNP-s, PF, B ooster, 100mcg/0.5mg (Moderna) 06/16/2021 Covid-19, Mrna, Lnp-s, Pf, B ivalent, 30 Mcg, IM, 12 yrs and above (ApeniMED) 05/23/2022 Pneumococcal Conjugate Vacci ne, 20-valent ([id number]) 06/26/2024(Deferred: Done Elsewhere) Seasonal Influenza, High Dos e, Trivalent, PF, IM (Fluzone HD) 06/26/2024(Deferred: Done Elsewhere) Seasonal Influenza, Quadriva lent Hd (Fluzone Hd) 06/06/2023,05/23/2022 documented as of this encounter Social History Tobacco Use Types Packs/Day Years Used Date Smoking Tobacco: Former Passive Smoke Exposure: Past Smokeless Tobacco: Never Alcohol Use Standard Drinks/Week Comments Yes 0 (1 standard drink = 0.6 oz pur e alcohol) occ PHQ-2 Answer Date Recorded PHQ Adult Total Score 0 06/26/2024 Sex and Gender Information Value Date Recorded Sex Assigned at Not on file Legal Sex Male 6:27 AM EST Gender Identity Not on file Sexual Orientation Not on file documented as of this encounter Miscellaneous Notes * Telephone Encounter - Leo Owens MD - 08/19/2024 4:33 PM EST Noted. Thank you for the update. I updated the PL and PMH with the diagnosis of wtATTR. * Telephone Encounter - Jey Devin Luz, MS - 08/19/2024 9:43 AM EST Mr. Delong called me this morning hoping to schedule a PYP Scan which was ordered as part of his [facility] appointment. I missed the initial call, but returned his call and was able to also disclose his negative genetic testing results. I called Salvador Delong to discuss the [facility] Amyloidosis genetic testing results that were ordered aspart of the [facility] for concerns of amyloidosis. At that appointment,genetic testing was ordered to check for known genetic causes of amyloidosis. The results of this genetic testing were negative. This means that no genetic changes were found that would explain his amyloidosis. This does not rule out the possibility of a genetic cause, as manycauses of amyloidosis remain unknown. We discussed that is important to continue to follow-up with the [facility] and your other medical providers as scheduled. We discussed that a copy of the test results would be sent via Sway to keep for his records and to share with other members of his family. Because we were unable to find a specific genetic cause for his symptoms, there is no testing that we would offer to his unaffected family members at this time. We discussed that their family should still inform their providers about all of their family history. We discussed that if he has any questions or would like to discuss these results further, he can call me at [phone]. He also stated that he would like to schedule his PYP scan. He asked if this testing was necessary,and I informed him that this testing is used by the doctors to determine where the amyloids are andhow to treat his amyloidosis. As he was unable to reach the scheduling department, I routed a message to Nuclear Medicine asking them to give the patient a call. Devin Khanna MS, [facility] Licensed, Certified Genetic Counselor documented in this encounter Plan of Treatment Upcoming Encounters Date Type Department Care Team (Late st Contact Info) Description 01/29/2025 8:20 AM EDT Laboratory Laboratory, Bhavya Herrera [address] [phone] Yaakov Latif [address] [address] 02/03/2025 8:20 AM EDT Office Visit Family [facility], Bhavya Rendon [address] [phone] Faby Tomas MD [address] [phone] Health Maintenance Due Date Last Done Comments Pneumococcal Vaccine: 50+ Years (1 of 1 - PCV) 1996 Adult Wellness Visit 2012 COVID-19 Vaccine (2023- season) 2024 05/23/2022, 06/16/2021, 06/16/2021, Additional history exists Influenza Vaccine (FLU shot) (#1) 2024 06/06/2023, 05/23/2022 Albumin/Creatinine Ratio 04/22/2025 04/22/2022 GFR 06/07/2025 06/07/2024, 01/2023, 01/04/2023, Additional history exists TSH 06/07/2025 06/07/2024, 01/2023, 10/24/2022, Additional history exists Depression Screening 06/26/2025 06/26/2024 DTap/Tdap Vaccines Discontinued HPV (Gardasil) Vaccine Aged Out No lo nger eligible based on patient's age to complete this topic Hepatitis B Vaccine Aged Out No longe r eligible based on patient's age to complete this topic Hepatitis C Screening Discontinued MENINGOCOCCAL (MENACTRA/MENVEO) Aged Out No longer eligible based on patient's age to complete this topic Zoster Vaccines Discontinued documented as of this encounter Medical Devices Not on filedocumented as of this encounter Visit Diagnoses Diagnosis Wild-type transthyretin-related (ATTR) amyloidosis (HCC)- Primary documented in this encounter Care Teams Bakery And Deli Sales Manager Relationship Specialty Start Date End Date Faby Tomas MD PCP - General Family Medicine 10/20/21 documented as of this encounter
--- OUTSIDE RECORDS SUMMARY | 2024-09-03 05:02 | External Medical Summary | Summary of Care ---
Author Name Unknown Organization [facility] Address [address] [facility] [place] [address] Phone [phone] Care Team Providers Care Care Tech Name Role Phone Faby Tomas MD Primary Care Provid er Encounter Details Date Type Department Care Team (Late st Contact Info) Description 08/22/2024 Population Health External Data Unspecified Department Allergies No known active allergiesdocumented as of this encounter (statuses as of 08/22/2024) Medications Aspirin 81 MG Tablet Take 1 [...] as of this encounter (statuses as of 08/22/2024) Active Problems Problem Noted Date Diagnosed Date [...] as of this encounter (statuses as of 08/22/2024) Resolved Problems Problem Noted Date Diagnosed Date Resolved Date Sacroiliitis 07/14/2015 06/22/2022 documented as of this encounter (statuses as of 08/22/2024) Immunizations Name Administration Dates Next Due COVID-19 mRNA, LNP-s, No Pre serve, 2-Dose Series (Moderna) 06/16/2021,10/05/2020,09/07/2020 COVID-19, mRNA, LNP-s, PF, B ooster, 100mcg/0.5mg (Moderna) 06/16/2021 Covid-19, Mrna, Lnp-s, Pf, B ivalent, 30 Mcg, IM, 12 yrs and above (Webcentrix) 05/23/2022 Pneumococcal Conjugate Vacci ne, 20-valent ([id number]) 06/26/2024(Deferred: Done Elsewhere) Seasonal Influenza, High Dos [...] on file documented as of this encounter Plan of Treatment Upcoming Encounters Date Type Department Care Team (Late st Contact Info) Description 01/29/2025 8:20 AM EDT Laboratory Laboratory, Bhavya Herrera [address] [phone] Yaakov Latif [address] [address] 02/03/2025 8:20 AM EDT Office Visit Family Practice, Bhavya Rendon [address] [phone] Faby Tomas MD [address] [address] Health Maintenance Due Date Last Done Comments Pneumococcal Vaccine: 50+ Years (1 of 1 - PCV) 1996 Adult Wellness Visit 2012 COVID-19 Vaccine ( season) 2024 05/23/2022, 06/16/2021, 06/16/2021, Additional history exists Influenza Vaccine (FLU shot) (#1) 2024 06/06/2023, 05/23/2022 Albumin/Creatinine Ratio 04/22/2025 04/22/2022 GFR 06/07/2025 06/07/2024, 0 01/2023, 01/04/2023, Additional history exists TSH 06/07/2025 06/07/2024, 0 01/2023, 10/24/2022, Additional history exists Depression Screening [...] Not on filedocumented as of this encounter Care Teams Care Tech Relationship Specialty Start Date End Date Faby Tomas MD PCP - General Family Medicine 10/20/21 documented as of this encounter
[2024-09-03] MEDS: ACETAMINOPHEN 500 MG TAB PO SCH ×2 (05:59→10:59)
[2024-09-03] MEDS: dexAMETHasone**PF** 10 MG/ML VIAL IV SCH (06:00)
[2024-09-03] MEDS: FAMOTIDINE 20 MG TAB PO SCH (06:00)
[2024-09-03] MEDS: CeleBREX 200 MG CAP PO SCH (06:00)
[2024-09-03] MEDS: METOCLOPRAMIDE HCL 10 MG TABLET PO SCH (06:00)
[2024-09-03] MEDS: LR 500ML BOLUS, THEN 15ML/HR IV SCH (06:01)
[2024-09-03] MEDS: LR 60ML/HR IV SCH (06:01)
[2024-09-03] MEDS ORDERED: BUPIVACAINE 0.5 % 5 MG/1 ML PF 10ML VIAL ONE (06:24)
[2024-09-03] MEDS ORDERED: ROPIVACAINE 0.5% 5 MG/ML 30 ML VIAL ONE (06:24)
[2024-09-03] MEDS ORDERED: fentaNYL citrate PF 100 MCG/2 ML VIAL ONE (06:39)
[2024-09-03] MEDS ORDERED: MIDAZOLAM HCL 1 MG/ML 2ML VIAL ONE (06:39)
--- NOTE | 2024-09-03 06:48 | History & Physical Bridge Note ---
Date of Service September 03, 2024 History & Physical Bridge Note I have examined the patient, reviewed the History & Physical and in the interval since the performance of the History & Physical I have noted the following changes of clinical significance: no changes noted
[2024-09-03] MEDS ORDERED: PROPOFOL IV EMULSION 10 MG/ML 100 ML VIAL IV ONE (07:05)
[2024-09-03] MEDS: ceFAZolin 2000MG 2,000 MG/15 ML SYR IV SCH ×2 (07:06→14:50)
[2024-09-03] MEDS: ROPIV 0.5% 246mg, Ketorolac 30mg, EPINEPHrine 0.5mg in NSS INFIL SCH (07:40)
[2024-09-03] MEDS: ORTHO JOINT ANESTHETIC ONE (07:41)
[2024-09-03] MEDS: TRANEXAMIC ACID 1,000 MG **IV Intra-op IV SCH (08:03)
[2024-09-03] MEDS ORDERED: fentaNYL citrate PF 100 MCG/2 ML VIAL IV PRN (08:17)
[2024-09-03] MEDS ORDERED: ePHEDrine sulfate 50 MG/ML AMP IV PRN (08:17)
[2024-09-03] MEDS ORDERED: ONDANSETRON INJ 2 MG/ML 2 ML VIAL IV PRN ×2 (08:17→10:13)
[2024-09-03] MEDS ORDERED: ATROPINE SULFATE 0.1 MG/ML 10ML SYR IV PRN (08:17)
--- NOTE | 2024-09-03 09:01 | Operative Report ---
PG Post Operative Report Pre & Post Diagnosis Operation Date: 09/03/24 07:00 Pre-Op Diagnosis: Left Knee Degenerative Joint Disease Post-Op Diagnosis: Left Knee Degenerative Joint Disease I identified the patient and participated in the time-out.: Yes Procedure Operation Date: 09/03/24 07:00 Actual Procedures p Left Total Knee Arthroplasty(Left) - Mark Horvath MD Surgeon Mark Horvath MD Real Estate Valuer Paxton Tan PA-C Estimated Blood Loss 50 Findings Consistent with Post-Op Diagnosis Operative findings were advanced left knee tricompartment DJD. He extensive grade 4 [id number] disease in all 3 compartments. Fairly stiff knee. Specimens Left knee sent for pathology. Anesthesia Type Spinal MAC Complications none Disposition Accompanied Patient To Recovery: No Indications Patient is 79-year-old gentleman said a long history of knee problems and knee arthritis. He has right knee replaced 3 years ago. He has done quite well with this. He became more limited with the left knee pain and stiffness. He failed all conservative measures. X-rays show advanced left knee DJD. He elected proceed with left total knee arthroplasty. Description of Procedure Operative implants consist of: 1 Biomet Vanguard size 65 left posterior stabilized femoral component. 2. Biomet size 75 tibial tray. 3. 10 mm posterior stabilized polyethylene insert. 4. 31 x 8 all poly patella. The patient was taken the op room, identified, placed on the operating table in the supine position. All conductors were appropriately padded. IV antibiotics fibra anesthesia team. A spinal anesthetic and adductor canal block had been Weida in the holding area. A left thigh turn was then placed. Left lower extremity was then prepped and draped in usual sterile fashion. The left leg was elevated and exsanguinated with use of an Esmarch and a turn was placed at 300 mmHg. An anterior approach to the left knee was then performed to longitudinal incision centered over the patella. Sharp dissection was got through subcutaneous tissue down the extensor mechanism. A medial parapatellar arthrotomy incision was made. Some subperiosteal dissection was carried out medially. The fat pad was dissected from Neath patella tendon. Lateral patellofemoral ligament was released. The patella subluxated laterally and the knee was flexed. The osteophytes taken off distal femur. The ACL and PCL were then released from distal femur and the tibia subluxate anteriorly. The external treatment LYMErix then placed on the anterior face the tibia and adjusted 14 mm medially. Proximal tibial cut was made essentially flush with the most efficient aspect of the medial tibial plateau. Some osteophytes taken off medially. The tibia sized to a size 75. Attention then drawn the femur. The distal femur then with a sharp drill. Intramedullary canal was suction. A left 6 degree cutting guide was placed. Distal femoral cutting block was pinned in place. This femoral cut was made to take an additional 3 mm of bone off distal femur. The femur was then sized to a size 65. We did downsize this slightly. The AP cutting block was pinned parallel to the epicondylar axis which was 5 degrees of external rotation. The anterior cut, anterior chamfer, posterior cut, posterior chamfer cuts were made. The box cutting guide was placed and adjusted slightly lateral and the box cut was made. The knee was flexed. The remnants of the medial and lateral menisci were excised. The osteophytes taken off the posterior aspect the femur. A trial femoral component was placed. The tibia was subluxated anteriorly. The tibial tray was pinned in Viktoriya external rotation and the drill and stem punch were used to create the defect in the proximal tibia for the tibial tray. Knee was then trialed and 10 mm insert fit most appropriately. Attention was then drawn to the patella. The patella was cleaned of all soft tissues. Patella thickness measured 22 mm in thickness and was cut down to 14. Was sized to a size 31 patella. The lug holes were drilled for 31 patella. The lateral osteophyte was removed. Patella button was placed. The knee was taken through range of motion patella tracked nicely with no thumbs test. Attention drawn to placing permanent components. All trial components removed. Bone plug was placed into this femur limit blood loss. A double batch of Palacos G cement was mixed. Biomet Vanguard size 65 left posterior stabilized femoral component, size 75 tibial tray, a 10 mm post stabilized polyethylene insert, and a 31 x 8 all poly patella then cemented in place. The knee was brought out into full extension till cement hardened. Final cement check was then performed. The pericapsular tissues were injected with total 100 cc of Ortho mix. Patient did receive 1 g tranexamic acid. The tourniquet was then let down for tourniquet time 66 minutes. Hemostasis assured with electrocautery. The wounds once again irrigated. Extensor Meclomen closed with combination 1 PDS suture #1 Vicryl suture in a upssvn-or-dzpvu fashion. Extensor mechanism checked found be intact. Subcutaneous tissue then closed with 2 Dexon suture in a buried interrupted fashion skin was closed skin nikki. Leg was then cleaned and dried a sterile dressing with Xeroform, 4 fours, sterile cast padding, West bandage were applied. Patient then transferred to the recovery room in stable condition. Patient tolerated procedure well and there were no complications. Paxton Tan, my physician orthotic assistant, was present for the entire procedure. His assistance was essential and required for appropriate patient positioning, prepping and draping, surgical exposure, performing the technical details of the operation, placement the implants, closure of the wound, and placement of the sterile bandage. I attest to the content of the Intraoperative Record and any orders documented therein. Any exceptions are noted below.
--- NOTE | 2024-09-03 09:27 | XRay Report ---
XR knee LT 1 or 2V routine CLINICAL HISTORY: Postoperative evaluation. COMPARISON: Knee radiographs May 06, 2024. FINDINGS: Alignment of the total left knee arthroplasty is anatomic. There is no periprosthetic frac ture. There are no unexpected radiopaque foreign body. There are skin nikki. IMPRESSION: Expected findings following total left knee arthroplasty. ACT 112: Negative or not required by law. Electronically signed by: Dwaine Mills M.D. 09/03/2024 9:25 AM
[2024-09-03] MEDS ORDERED: HYDROmorphone INJ 0.5 MG/0.5 ML SYR IV PRN (10:13)
[2024-09-03] MEDS ORDERED: MAGNESIUM HYDROXIDE SUSP 30 ML UDC PO PRN (10:13)
[2024-09-03] MEDS ORDERED: bisacodyL 10 MG SUPP PR PRN (10:13)
[2024-09-03] MEDS ORDERED: NALOXONE HCL 0.4 MG/1 ML VIAL/CARP IV PRN (10:13)
[2024-09-03] MEDS ORDERED: COLCHICINE 0.6 MG TAB PO PRN (10:13)
[2024-09-03] MEDS ORDERED: METOCLOPRAMIDE HCL INJ 5 MG/ML 2 ML VIAL IV PRN (10:13)
[2024-09-03] MEDS ORDERED: ALUMINUM/MAGNESIUM SUSP 30 ML UDC PO PRN (10:13)
[2024-09-03] MEDS ORDERED: ACETAMINOPHEN 500 MG TAB PO PRN (10:47)
[2024-09-03] MEDS: SENNA 8.6 MG TAB PO SCH (10:59)
[2024-09-03] MEDS: DOCUSATE SODIUM 100 MG CAP PO SCH (10:59)
[2024-09-03] MEDS: KETOROLAC TROMETHAMINE 15 MG/ML VIAL IV SCH (11:01)
[2024-09-03] MEDS: ASPIRIN 81 MG ECTAB PO SCH (11:02)
[2024-09-03] MEDS: LEVOTHYROXINE SODIUM 150 MCG TABLET PO SCH (11:03)
[2024-09-03] MEDS: INDAPAMIDE 1.25 MG TAB PO SCH (11:07)
[2024-09-03] MEDS: lisinopril 40 MG TAB PO SCH (11:07)
[2024-09-03] MEDS: MULTIVITAMIN TAB PO SCH (11:07)
[2024-09-03] MEDS: TAMSULOSIN HCL 0.4 MG CAP PO SCH (11:07)
[2024-09-03] MEDS: oxyCODONE HCL IR 5 MG TAB (IMMEDIATE RELEASE) PO PRN (13:58)
[2024-09-03] MEDS: TRANEXAMIC ACID / 0.7% NACL 1,000 MG/100 ML BAG IV SCH (14:50)
[2024-09-03] MEDS: ASCORBIC ACID 500 MG TAB PO SCH (16:53)
[2024-09-03] MEDS: LANSOPRAZOLE 30 MG SOLTAB PO SCH (20:24)
[2024-09-03] MEDS ORDERED: SENNA 8.6 MG TAB PO SCH (21:00)
[2024-09-04 04:18] VITALS: RESP 16
--- OUTSIDE RECORDS SUMMARY | 2024-09-04 06:15 | External Medical Summary | Summary of Care ---
Author Name Unknown Organization [facility] Address [address] [facility] [place] [address] Phone [phone] Care Team Providers Care Grease Remover Name Role Phone Faby Tomas MD Primary Care Provid er Encounter Details Date Type Department Care Team (Late st Contact Info) Description 06/03/2024 Telephone Orthopaedics [facility] [address] [place] [address] Juice Boykin MD [address] [phone] Allergies No known active allergiesdocumented as of this encounter (statuses as of 09/03/2024) Medications Aspirin 81 MG Tablet Take 1 Tablet by mouth in the morning. Active Triamcinolone Acetonide 0.1 % External Cream (Aristocort) Apply topically to affected area 2 times a day. To affected area. 80 g 5 023 Active Synthroid 150 MCG Oral Tablet (levothyroxine)In dications:Acquire d hypothyroidism TAKE 1 TABLET DAILY BEFORE BREAKFAST IN THE MORNING 90 Tablet 3 024 Active Azelastine HCl 0.15 % Nasal Solution Administer 1 [place] into nostril in the morning and 1 [place] before bedtime. 30 mL 12 023 2024 Discontinued(M edication List Clean Up) Lansoprazole 30 MG Oral Capsule Delayed Release (Prevacid) TAKE 1 CAPSULE IN THE MORNING 90 Capsule 1 024 2023 Discontinued Lisinopril 40 MG Oral Tablet TAKE 1 TABLET EVERY MORNING 90 Tablet 024 2023 Discontinued documented as of this encounter (statuses as of 09/03/2024) Active Problems Problem Noted Date Diagnosed Date [...] as of this encounter (statuses as of 09/03/2024) Resolved Problems Problem Noted Date Diagnosed Date Resolved Date Sacroiliitis 07/14/2015 06/22/2022 documented as of this encounter (statuses as of 09/03/2024) Immunizations Name Administration Dates Next Due COVID-19 mRNA, LNP-s, No Pre serve, 2-Dose Series (Moderna) 06/16/2021,10/05/2020,09/07/2020 COVID-19, mRNA, LNP-s, PF, B ooster, 100mcg/0.5mg (Moderna) 06/16/2021 Covid-19, Mrna, Lnp-s, Pf, B ivalent, 30 Mcg, IM, 12 yrs and above (Pfizer) 05/23/2022 Seasonal Influenza, Quadriva lent Hd (Fluzone Hd) [...] encounter Miscellaneous Notes * Telephone Encounter - Niru Winters LPN - 06/03/2024 3:30 PM EST Called pt for 2 reasons, to schedule a post op visit with Dr Boykin, he states if the visit is 06/05/24, he is only able to come in first thing in the morning. [facility] Also, advised pt of + amyloid from surgical specimen, he is aware that their schedulers will contact him for a visit. documented in this encounter Plan of Treatment Upcoming Encounters Date Type Department Care Team (Late st Contact Info) Description 01/29/2025 8:20 AM EDT Laboratory Laboratory, Bhavya Herrera [address] [phone] Yaakov Latif [address] [phone] 02/03/2025 8:20 AM EDT Office Visit Family [facility], Bhavya Rendon [address] [phone] Faby Tomas MD [address] [phone] Health Maintenance Due Date Last Done Comments Pneumococcal Vaccine: 50+ Years (1 of 1 - PCV) 1996 Adult Wellness Visit 2012 COVID-19 Vaccine (6 - 2024-25 season) 2024 05/23/2022, 06/16/2021, 06/16/2021, Additional history exists Influenza Vaccine (FLU shot) (#1) 2024 06/06/2023, 05/23/2022 Albumin/Creatinine Ratio 04/22/2025 04/22/2022 GFR 06/07/2025 06/07/2024, 0 01/2023, 01/04/2023, Additional history exists TSH 06/07/2025 06/07/2024, 110 01/2023, 10/24/2022, Additional history exists Depression Screening [...] filedocumented as of this encounter Care Teams Grease Remover Relationship Specialty Start Date End Date Faby Tomas MD PCP - General Family Medicine 10/20/21 documented as of this encounter
--- OUTSIDE RECORDS SUMMARY | 2024-09-04 06:15 | External Medical Summary | Summary of Care ---
Author Name Unknown Organization [facility] Address [address] [facility] [place] [address] Phone [phone] Care Team Providers Care Supervisor Asbestos Textile Name Role Phone Faby Tomas MD Primary Care Provid er Reason for Visit * Reason Onset Date Comments Appointment 06/03/2024 Encounter Details Date Type Department Care Team (Late st Contact Info) Description 06/03/2024 Telephone Orthopaedics [facility] [address] [facility] [place] [address] Juice Boykin MD [address] [facility] [place] [phone] Appointment Allergies No known active allergiesdocumented as of [...] THE MORNING 90 Tablet 3 4 Active documented as of this encounter [...] 30 Mcg, IM, 12 yrs and above (Taxizu) 05/23/2022 Seasonal Influenza, Quadriva lent Hd (Fluzone [...] encounter Miscellaneous Notes * Telephone Encounter - Kenyatta Rosales OSA - 06/03/2024 10:54 AM EST Pt said that he was not aware he had an appt this past Monday and call center said he was upset when it was marked a no-show. I did not speak with the pt directly, but since this is a PO visit and hehas to see Dr. Boykin there is nothing sooner than June. Please advise. Can just send directly back to me and I can call pt to schedule. documented in this encounter Plan of Treatment Upcoming Encounters Date Type Department Care Team (Late st Contact Info) Description 01/29/2025 8:20 AM EDT Laboratory Laboratory, Bhavya Herrera [address] [phone] [facility] Laboratory [address] [address] 02/03/2025 8:20 AM EDT Office Visit Family Practice, Bhavya Rendon [address] [phone] Faby Tomas MD [address] [address] Health Maintenance Due Date Last Done Comments Pneumococcal Vaccine: 50+ Years (1 of 1 - PCV) 1996 Adult Wellness Visit 2012 COVID-19 Vaccine ( season) 2024 05/23/2022, 06/16/2021, 06/16/2021, Additional history exists Influenza Vaccine (FLU shot) (#1) 2024 06/06/2023, 05/23/2022 Albumin/Creatinine Ratio 04/22/2025 04/22/2022 GFR 06/07/2025 06/07/2024, 1101/2023, 01/04/2023, Additional history exists TSH 06/07/2025 06/07/2024, [...] filedocumented as of this encounter Care Teams Supervisor Asbestos Textile Relationship Specialty Start Date End Date Faby Tomas MD PCP - General Family Medicine 10/20/21 documented as of this encounter
[2024-09-04 06:27] LABS: Hematocrit (blood only) 40.9 % (42.0-52.0); Mean Corpuscular Hemoglobin 28.6 pg (25.0-34.0); Mean Corpuscular Hgb Conc 34.2 g/dL (32.0-36.0); Mean Corpuscular Volume 83.6 fL (80.0-100.0); Mean Platelet Volume 11.1 fL (9.4-12.4); Platelet Count 274 K/uL (130-400); RDW Coefficient of Variation 14.1 % (11.5-14.5); RDW Standard Deviation 43.2 fL (36.4-46.3); Red Blood Count 4.89 M/uL (4.70-6.10); White Blood Count 15.43 K/ul (4.8-10.8)
[2024-09-04 06:45] LABS: BUN Creatinine Ratio 22.5 (10-20); Calcium 9.3 mg/dl (8.6-10.3); Creatinine Clr Calc Pharmacy 83.2 ml/min; Potassium 4.4 mmol/L (3.5-5.1)
[2024-09-04 07:39] VITALS: BP 135/72; PULSE 82; TEMP 97.7; O2SAT 94
[2024-09-04] MEDS: dexAMETHasone 10 MG in SYRINGE 0 ML IV SCH (08:54)
--- NOTE | 2024-09-04 09:57 | Orthopedic Progress Note ---
Date of Service September 04, 2024 Assessment & Plan (1) Status post total knee replacement, left: (2) Aftercare following joint replacement surgery: Plan 71-year-old gentleman POD# 1 s/p left total knee replacement, doing well overall. Pain is well-controlled. Medically stable. Postop x-rays well- appearing. He is neurologically intact. Plan: 1. DVT prophylaxis w/ TEDs, SCDs, ASA 81 mg BID. 2. PT/OT as tolerated. WBAT on the LLE. Encourage heel slides, SLR, full knee extension w/ quad sets. 3. Pain control doing well with current pain regimen. 4. Dressing change POD#2 per discharge instructions. 5. Disposition - plan to D/C home later today once cleared by PT/OT; will have home PT via [facility]. 6. F/u 2 weeks post-op w/ orthopedics (Dr. Horvath's team), or as previously scheduled, for first post-op visit. Subjective Patient is POD# 1 s/p left total knee arthroplasty by Dr. Horvath on 09/03/24. Patient says his pain is well-controlled this morning. Denies CP, SOB, N/V, LLE paresthesia. He has [facility] home PT arranged to come to the house for therapy. Patient says that he will be ready to go home today. He is familiar with the postoperative course, as he has had the contralateral right knee replaced in the past. Review of Systems All systems reviewed & are unremarkable except as noted in HPI & below. Physical Exam GENERAL: AA&Ox3, NAD. Pleasant, affect is calm. Sitting in the bed and appears comfortable. RESPIRATORY: Normal respiratory effort with no signs of distress. CHEST/AXILLA: Chest movement symmetrical. No deformities noted. CARDIOVASCULAR: No edema noted. SKIN: [place], warm and dry. MS/EXTREMITY: Knee dressing & DEMETRIS wrap c/d/i. RADHA hose donned to contralateral LE. + ankle dorsi/plantarflexion. NVI distally. Calf soft/NT. PT/DP pulses intact, 2+. Able to perform SLR without assistance. Results & Data Results & Data Laboratory Results Laboratory Results - last 24 hr 09/04/24 06:08 WBC 15.43 H RBC 4.89 Hgb 14.0 Hct 40.9 L MCV 83.6 MCH 28.6 MCHC 34.2 RDW Std Deviation 43.2 RDW Coeff of Casimiro 14.1 Plt Count 274 MPV 11.1 Sodium 130 L Potassium 4.4 Chloride 96 L Carbon Dioxide 28 Anion Gap 6 BUN 20 Creatinine 0.89 Est Cr Clr Drug Dosing 83.2 eGFR 87.71 BUN/Creatinine Ratio 22.5 H Glucose 113 H Calcium 9.3 Diagnostic Findings Knee X-Ray 09/03/24 08:52 XR knee LT 1 or 2V routine CLINICAL HISTORY: Postoperative evaluation. COMPARISON: Knee radiographs May 06, 2024. FINDINGS: Alignment of the total left knee arthroplasty is anatomic. There is no periprosthetic fracture. There are no unexpected radiopaque foreign body. There are skin nikki. IMPRESSION: Expected findings following total left knee arthroplasty. ACT 112: Negative or not required by law. Electronically signed by: Dwaine Mills M.D. 09/03/2024 9:25 AM PG Care Time/CCT Total # of Minutes Spent Total Time Spent with Patient: Total time spent is greater than 50% in coordination of care (as documented) at patient's floor/unit and/or counseling patient: Coding [place] [address] SUB INP/OBS CARE 08/24MIN Patient Type Established History Problem Focused Exam Problem Focused Medical Decision Making Straight Forward Diagnoses Status post total knee replacement, left Z96.652 Aftercare following joint replacement surgery Z47.1
--- NOTE | 2024-09-04 16:37 | Discharge Summary ---
Date of Service September 04, 2024 Admission HPI (Per Admitting) 08/12/24 OV: The patient is a 79-year-old gentleman who presents for followup and treatment of his left knee today. He is almost 3 years out from right knee replacement, which has done well. He continues to be limited by left knee pain and discomfort that has gradually gotten worse overtime. He describes global pain. He was actually scheduled to have his left knee replaced, but then had to undergo a cardiac workup for amyloid issues. He did see [facility] recently just a couple of days ago and the report is pending. By report, he has been cleared for surgery. This was done at [facility] on 08/09/2024. Admission Exam (Per Admitting) Gen: Physical examination shows a pleasant, middle-aged male. He looks to be in good health. HEENT: Benign. Neck: Supple. No lymphadenopathy. Lungs: Clear to auscultation. Heart: Regular rate and rhythm. Abdomen: Soft, nontender, and nondistended. Extremities: Grossly neurovascularly intact except as follows: Examination of both knees reveals the patient ambulates independently. Examination of the left knee reveals a moderate-sized knee effusion. His range of motion is about 10 degrees short of full extension to about 110 degrees of flexion. Fairly stiff. No particular pain with hip motion. Examination of the right knee reveals a well-healed incision. No swelling. Range of motion is 0 to 120. XR Exam:X-rays, I did review his x-rays from previously. These were dated 05/06/2024. It shows advanced left knee tricompartment DJD. He has got complete loss of the joint space. 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 The right knee replacement looks to be in good position without problems. Principal Diagnosis Same as "Discharge Diagnosis" noted below under Discharge Instructions. Discharge Exam GENERAL: AA&Ox3, NAD. Pleasant, affect is calm. Sitting in the bed and appears comfortable. RESPIRATORY: Normal respiratory effort with no signs of distress. CHEST/AXILLA: Chest movement symmetrical. No deformities noted. CARDIOVASCULAR: No edema noted. SKIN: [place], warm and dry. MS/EXTREMITY: Knee dressing & DEMETRIS wrap c/d/i. RADHA hose donned to contralateral LE. + ankle dorsi/plantarflexion. NVI distally. Calf soft/NT. PT/DP pulses intact, 2+. Able to perform SLR without assistance. Discharge Data Procedures Performed Operation Date: 09/03/24 07:00 Actual Procedures p Left Total Knee Arthroplasty(Left) - Mark Horvath MD Ordered Studies 09/03/24 05:00 US - OR guided needle placemen Routine Hospital Course (1) Aftercare following joint replacement surgery: (2) Status post total knee replacement, left: Plan On September 03, 2024 Salvador arrived at [facility] operating room and underwent a left total knee replacement without complications. Patient had an adductor canal block and spinal anesthetic for the procedure. Postoperatively, patient was transferred to the general orthopedic floor in stable condition and eventually started onto aspirin 81 mg twice daily for DVT prophylaxis as appropriate. Patient's hospital course was uneventful. On postoperative day #1, patient's vital signs were stable and pain was well- controlled. Patient was able to participate well with physical therapy, safely performing the necessary ambulation and range of motion exercises and properly demonstrating ADL tasks. Patient was then discharged home in stable condition, with home physical therapy services to begin. Patient will follow-up with orthopedics in 2 to 3 weeks for postoperative care. PG Care Time/CCT Total # of Minutes Spent Total Time Spent with Patient: Total time spent is greater than 50% in coordination of care (as documented) at patient's floor/unit and/or counseling patient: Discharge Plan Discharge Items Patient Disposition: Home - Home Health Services Reason For Visit: Left Knee Osteoarthritis Discharge Diagnosis: Left Knee Replacement Activity: Per Instructions section Weightbearing: Full weightbearing Non-emergency contact: Surgeon Call non-emergency contact if: you have any medication questions Follow-up/Referrals: Faby Tomas MD [Primary Care Provider] - Diet: Regular Addtl Attending Provider Instructions: ACTIVITY RECOMMENDATIONS: Diet: * You may resume previous diet. Physical Therapy: * You will go to physical therapy three times each week for four to six weeks after your surgery in order to regain your knee range of motion and to retrain your knee to work properly. * It is just as important to make sure you are getting your knee perfectly straight as it is to regain your knee bend. * Taking a pain pill an hour before therapy can help you have a more productive and comfortable therapy session. Home Exercise: * You were shown a series of exercises (heel props, heel slides, etc.) in the hospital. Do these exercises three to four times each day including the exercises you were shown in physical therapy. Walking: * Get up and walk several times each day. For the first four weeks, try not to stand or walk for more than one hour at a time. If you do stand or walk for more than one hour, you will not hurt anything, but your knee and leg will likely swell. * As you feel comfortable, you may change from the walker or crutches to a cane and then to independent walking. MEDICATIONS: New Medicine: * You will likely be taking one or more of these medications: 1. Oxycodone - A quick and shorter-acting pain medication. Take one to two tablets every six hours to lessen your pain. 2. Aspirin - Thins your blood to lessen the chance of forming a blood clot. * The most common side effects of pain medicine and iron are nausea and constipation. If nausea or constipation is too much of a problem or if you have any questions about your new medicines or doses, call [facility] at . We will try to help you manage these issues. "VERY IMPORTANT TO READ AND REVIEW" Pain: * The immediate post-operative period after knee replacement surgery is often quite painful. * You are given a prescription for pain medicine. You should take it, as directed, when you need it, especially before physical therapy and before going to bed. Pain that interferes with sleep is very common and can last several months. * You will likely need pain medicine for the first four to six weeks. It will not stop all of the pain. The pain will lessen and as you feel better, you may change to milder pain medicine such as Tylenol. * The most common side effects of pain medicine are nausea and constipation, so don't take more than you need. SPECIAL CARE INSTRUCTIONS: TEDs/Elastic Stockings: * The white elastic stockings help limit swelling and prevent blood clots from forming in your legs. The more you wear them, the more they work. * Wear them for six weeks after knee replacement surgery and four weeks after partial knee replacement. Incision Site Care: * Remove dressing postoperative day 2 and then shower. Keep direct shower pressure off the incision site. * After showering, cover nikki with dry gauze and change daily or more frequently if the dressing is getting saturated with drainage. * Use the RADHA stockings to hold dressing in place. DO NOT apply tape on the skin. * May completely stop using bandage if wound is dry and no drainage * [place] are removed between 2 and 3 weeks post-op. If your follow-up appointment is made before 2 weeks, please have your appointment re- scheduled. It is too early to remove the nikki. Prevention of Infection: * Take antibiotics one hour before any dental cleaning, dental work, urological procedure, gastrointestinal procedure or any invasive surgery in order to prevent your new joint from getting infected. * You may get the antibiotics from the doctor performing the procedure or you may call our office at [phone] before and we will call in a prescription to the pharmacy of your choice. Things to Watch For: * Drainage from the incision site that occurs more than one week after your surgery. * Severely increased knee/leg pain or swelling. * Increased redness at the incision site. * Fever above 102 degrees Fahrenheit. * Unusual chest pain or shortness of breath. * Unusual pain or burning with urination. Call [facility] at [phone] with any of the above problems or if you have any questions about your medicines or recovery. FOLLOW UP VISIT: Make an appointment to see your doctor for approximately two weeks after surgery for a progress check and staple removal by calling the office at [phone]. Pending Studies at Discharge: No Stand-Alone Forms: My [facility], Smoking Cessation Medications and DC Order Prescriptions: Continued oxycodone 5 mg tablet 5 - 10 mg PO Q6 PRN (Reason: pain) Qty: 40 0RF Patient Comments: post op Rx Instructions: Take as needed for pain ondansetron 4 mg tablet,disintegrating 4 mg PO Q8 PRN (Reason: nausea) Qty: 20 1RF Patient Comments: post op Rx Instructions: Take as needed for nausea ketorolac 10 mg tablet 10 mg PO Q6 5 Days Qty: 20 0RF Patient Comments: post op Rx Instructions: Take 4 times per day with food for 5 days to lessen pain and swelling. sennosides [Senokot] 8.6 mg tablet 8.6 mg PO BID 14 Days Qty: 28 0RF Patient Comments: post op Rx Instructions: Take two times a day to prevent/treat constipation acetaminophen [Tylenol Extra Strength] 500 mg tablet 1,000 mg PO TID 30 Days Qty: 180 0RF Patient Comments: post op Rx Instructions: Take 3 times per day to lessen pain. aspirin [Ketty Low Dose Aspirin] 81 mg tablet,delayed release (DR/EC) 81 mg PO BID 45 Days Qty: 90 0RF Patient Comments: post op Rx Instructions: Take to prevent blood clots. cefadroxil 500 mg capsule 500 mg PO BID 7 Days Qty: 14 0RF Patient Comments: post op Rx Instructions: Take 1 cap twice a day to prevent infection tamsulosin [Flomax] 0.4 mg capsule 0.4 mg PO DAILY Qty: 7 0RF Rx Instructions: Begin night BEFORE surgery to prevent urinary retention indapamide 2.5 mg tablet 2.5 mg PO QAM lansoprazole 30 mg tablet,disintegrat, delay rel 30 mg PO HS levothyroxine [Synthroid] 150 mcg tablet 150 mcg PO QAM lisinopril 40 mg tablet 40 mg PO QAM acetaminophen 500 mg capsule 1,000 mg PO TID PRN (Reason: Pain) Rx Instructions: Take 3 times per day to decrease pain. aspirin [Ketty Low Dose Aspirin] 81 mg tablet,delayed release (DR/EC) 81 mg PO QAM Rx Instructions: Take to prevent blood clots. colchicine 0.6 mg tablet 0.6 mg PO BID PRN (Reason: gout) Patient Comments: uses prn Admission Data Admit Date/Time: 09/03/24 08:52 Attending Provider: Mark Horvath Admit Provider: Mark Horvath Primary Care Provider: Faby Tomas Other Interventions: Discharge Summary Assessment (RN) Last Done: 09/04/24 10:15
== END 2024-09-04 12:25 | disposition home health service (06) ==
LOC: ASU 04:57 → 3W 04:57